=== PATIENT | female | born 1960 ===

== ENCOUNTER 2025-01-29 16:31 | Emergency (ER) | payer MEDICARE ==
[~2025-01-29] VITALS: Ht 157.5 cm; Wt 90.7 kg
--- NOTE | 2025-01-29 16:40 | ERN ---
ED Note History of Present Illness Stated Complaint: FALL Chief Complaint: Mechanical Fall Time Seen by MD: 16:34 Dictation: PATIENT IS A 64-YEAR-OLD MALE HERE VISITING FROM [facility] WITH COMPLAINT OF RIGHT KNEE PAIN STATUS POST A SAME LEVEL FALL THIS MORNING. 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 SHE STATES HOWEVER SHE HAS BEEN HAVING PAIN TO THE SAME KNEE FOR SEVERAL DAYS. [facility] NEUROVASC[facility] CMS INTACT SHE HAS NOT TAKEN ANYTHING TODAY PRIOR TO ARRIVAL FOR PAIN. Allergies: Coded Allergies: No Known Allergies (Unverified Allergy, Unknown, 01/29/25) Past Medical History History: Not Applicable RN Note Reviewed/Agreed w/PFSH: Yes Review of System Dictation CONSTITUTIONAL: NEGATIVE EXCEPT FOR HPI HEAD/FACE: NEGATIVE EXCEPT FOR HPI EENT: NEGATIVE EXCEPT FOR HPI RESPIRATORY: NEGATIVE EXCEPT FOR HPI GASTROINTESTINAL/ABDOMINAL: NEGATIVE EXCEPT FOR HPI GENITOURINARY: NEGATIVE EXCEPT FOR HPI MUSCULOSKELETAL: NEGATIVE EXCEPT FOR HPI RIGHT KNEE PAIN INTEGUMENTARY: NEGATIVE EXCEPT FOR HPI NEUROLOGICAL/PSYCH: NEGATIVE EXCEPT FOR HPI HEMATOLOGIC/LYMPHATIC: NEGATIVE EXCEPT FOR HPI ALL SYSTEMS NEGATIVE, EXCEPT NOTED ABOVE. 13 POINT REVIEW OF SYSTEMS ASSESSED AND ALL NEGATIVE EXCEPT FOR ABOVE. Initial Vital Sign VS Vital Signs Date Time Temp Pulse Resp B/P (MAP) Pulse Ox O2 Delivery O2 Flow Rate FiO2 01/29/25 16:34 98.4 71 16 170/128 98 Room Air 0 Physical Exam Dictation VITAL SIGNS REVIEWED GENERAL APPEARANCE: ALERT, ORIENTED X 3, MODERATE ACUTE DISTRESS, WELL DEVELOPED, NOURISHED. HEAD AND FACE: NON-TRAUMATIC. EYES: PERRL, PINK CONJUNCTIVAS, EYELID NO TRAUMA, ANTERIOR CHAMBER WITH ARCUS SENILIS. EARS: PINNAS INTACT AND NO SIGNS OF TRAUMA OR ERYTHEMA EAR CANALS CLEAR AND NO DISCHARGE TM NO ERYTHEMA NOSE: NO DISCHARGE, NO BLEEDING. OROPHARYNX: MOUTH NORMAL, TONGUE PINK, PHARYNX CLEAR,NO ERYTHEMA, TONSILS NO EXUDATES, NO ABSCESSES NOTED, MUCOUS MEMBRANE MOIST NECK: SUPPLE, NON-TENDER, NO THYROMEGALY, NO MASSES, NO JVD, NO BRUITS BREAST:DEFERRED CHEST:NO TENDERNESS, NO CREPITUS, NO PARADOXICAL MOVEMENT, NO RETRACTIONS LUNGS:CLEAR, WELL-VENTILATED, SYMMETRIC, NO RALES, NO WHEEZING, NO RHONCHI, NO STRIDOR, GOOD BREATH SOUNDS BILATERALLY HEART: REGULAR RATE, REGULAR RHYTHM, NO MURMUR, NO GALLOPS VASCULAR: NO PERIPHERAL EDEMA, ABDOMEN: SOFT, POSITIVE BOWEL SOUNDS, NONDISTENDED, NO GUARDING, NONTENDER, NO REBOUND, NO MASSES NO HEPATOMEGALY, NO SPLENOMEGALY, NO DEAL'S SIGN, NO HERNIAS. RECTAL: DEFERRED GENITAL: DEFERRED NEUROLOGICAL: NORMAL SPEECH, MOTOR FUNCTION INTACT, SENSORY FUNCTION INTACT MUSCULOSKELETAL: NECK NONTENDER, FULL RANGE OF MOTION, BACK NONTENDER, FULL RANGE OF MOTION, EXTREMITIES: DIFFUSE RIGHT KNEE TENDERNESS SWELLING. CHRONIC ARTHRITIC CHANGES NOTED CONSISTENT WITH DJD SKIN: COLOR PINK, DRY, NO TURGOR, NO RASH, NO LACERATIONS, NO ABRASIONS, NO CONTUSIONS. LYMPHATIC: DEFERRED Results (Laboratory/Radiology) Laboratory/Radiology Right knee x-ray negative except for degenerative changes Labs Reviewed?: Yes ED Course ED Course Orders Procedure Category Date Status Time Knee 3vws Rt RAD 01/29/25 Taken 16:36 Crutches W/Training CPOE 01/29/25 Transmitted (Er) 16:36 Knee Immobilizer JASSON 01/29/25 In Process 16:36 Ketorolac 60mg/2ml PHA 01/29/25 Complete (Toradol 60mg/2ml) 17:00 Current Medications Medications (Trade) Dose Ordered Sig/Domitila Route PRN Reason Start Time Stop Time Status Last Admin Dose Admin Ketorolac Tromethamine (toRADol 60MG/ 2ML) 60 mg ONCE ONCE IM 01/29/25 17:00 01/29/25 17:01 DC 01/29/25 17:18 Vital Signs Date Time Temp Pulse Resp B/P (MAP) Pulse Ox O2 Delivery O2 Flow Rate FiO2 01/29/25 16:34 98.4 71 16 170/128 98 Room Air 0 1830/PAIN IS REDUCED AFTER TREATMENT. DISCHARGED HOME UNABLE TO PROVIDE KNEE IMMOBILIZER DUE TO BODY HABITUS. NEUROVASCULAR CMS INTACT Medical Decision Making MDM MEDICAL DISCHARGE MAKING BASED ON X-RAY OF RIGHT KNEE AND PAIN MANAGEMENT. X-RAY NEGATIVE PATIENT DISCHARGED HOME WITH DIAGNOSIS OF CONTUSION OF THE DEGENERATION OF THE RIGHT KNEE. REFERRED TO DR. KAMERON BUCKLEY DX & DISP Disposition: Discharge Departure Impression: Primary Impression: Contusion of right knee, initial encounter Additional Impressions: Right knee DJD, Fall Condition: Stable Scripts Ibuprofen (Ibuprofen 800 mg Tab) 800 Mg Tab 800 MG PO Q8H PRN for fever or pain, #30 TAB 0 Refills Prov: RONAN JOHNSON NP 01/29/25 Additional Instructions: FOLLOW-UP WITH PRIMARY CARE PROVIDER IN 1 TO 2 DAYS. TAKE MEDICATIONS DIRECTED HERE IN THE EMERGENCY ROOM. OKAY TO CONTINUE HOME MEDICATIONS UNLESS OTHERWISE DISCUSSED DURING YOUR VISIT IN THE EMERGENCY ROOM TODAY. RETURN TO YOUR NEAREST EMERGENCY ROOM IF SYMPTOMS WORSEN OR IF THERE IS NO IMPROVEMENT. CALL 911 IF YOU NEED IMMEDIATE ASSISTANCE. TAKE TYLENOL OR MOTRIN [id number] NEEDED AND IF NO CONTRAINDICATIONS ARE PRESENT. INCREASE ORAL HYDRATION. A WOUND CULTURE OR URINE CULTURE WAS ORDERED HERE IN THE EMERGENCY ROOM DEPARTMENT PLEASE FOLLOW-UP WITH PRIMARY CARE PROVIDER AND ADVISE THEM TO GET REPEAT PORTS FROM OUR FACILITY. IF YOU HAD ANY ULISSES WRAP/SPLINTS THAT WERE APPLIED HERE, PLEASE DO NOT REMOVE THEM UNTIL YOU SEE YOUR PRIMARY CARE OR SPECIALTY. CRUTCHES AND NO WEIGHT-BEARING UNTIL CLEARED BY ORTHOPEDICS, CALL FOR AN APPOINTMENT TOMORROW. COOL COMPRESSES TO PAIN THREE TO 4 TIMES A DAY. SUGGEST IBUPROFEN EVERY8 HOURS FOR THE NEXT TWO DAYS WITH FOOD. Referrals: KAMERON BUCKLEY DO Time of Disposition: 18:33 I have reviewed the case, and I agree with, Diagnosis and Plan RONAN JOHNSON NP Jan 29, 2025 16:40
[2025-01-29] MEDS: ketOROlac 60 MG VIAL (30MG/ML) IM ONE (17:18)
[2025-01-29] MEDS ORDERED: IBUP-2077 PO (18:35)
[2025-01-29] MEDS: HYDROcodone/APAP 5/325 1 TAB TABLET PO ONE (18:47)
[2025-01-29 18:55] VITALS: BP 161/95; PULSE 70; RESP 16; TEMP 98.5; O2SAT 98
--- NOTE | 2025-01-29 19:24 | HMCIMG ---
KNEE 3VWS RT INDICATION: RIGHT DIFFUSE KNEE PAIN STATUS POST FALL THIS MORNING TECHNIQUE: KNEE 3VWS RT. - FINDINGS AND IMPRESSION: No displaced fracture or dislocation is seen. Correlate clinically. There is diffuse soft tissue swelling Moderate degenerative changes of the medial compartment are seen. No radiopaque foreign body is identified.
== END 2025-01-29 19:04 | disposition home or self-care (01) ==
LOC: EDH 16:31
DX: S80.01XA Contusion of right knee, initial encounter (principal); M17.11 Unilateral primary osteoarthritis, right knee; W18.39XA Other fall on same level, initial encounter; Y93.9 Activity, unspecified; Y92.89 Other specified places as the place of occurrence of the external cause; Y99.8 Other external cause status
CPT/HCPCS: 99283; 73562; 96372; J1885